=== PATIENT | female | born 1995 | race African-American/Black ===

== ENCOUNTER → 2024-01-13 | Outpatient (CLI) | payer MEDICAID, SELFPAY ==
[2024-01-16 11:13] LABS: Chlamydia By Nucleic Acid AMP Negative (Negative); Gonococcus By Nucleic Acid AMP Negative (Negative)
[2024-01-20 16:24] LABS: HPV Reflexed? NOT INDICATED
== END | disposition home or self-care (01) ==
PROVIDERS: Referring Provider Advanced Practice Midwife; Visit Provider Advanced Practice Midwife
DX: O09.90 Supervision of high risk pregnancy, unspecified, unspecified trimester (principal); Z3A.00 Weeks of gestation of pregnancy not specified
CPT/HCPCS: 87086; 87491; 87591; 88175; G0145

== ENCOUNTER 2024-02-06 14:29 | Emergency (ER) | payer MEDICAID, SELFPAY ==
[2024-02-06 14:30] VITALS: BP 125/61; PULSE 96; RESP 18; TEMP 36.1; O2SAT 100; BMI 26.6
--- NOTE | 2024-02-06 14:39 | US_ITS ---
HISTORY: contractions at 12 weeks. LMP 11/12/2023. TECHNIQUE: Transvaginal pelvic ultrasound was performed. 63 images. COMPARISON: None. FINDINGS: UTERUS: 13.8 x 11.6 x 8.9 cm. Closed cervix. OVARIES: Not well-visualized overlying bowel gas and enlarged uterus. FREE FLUID: None. INTRAUTERINE GESTATIONAL SAC: Single. Mean sac diameter 6.7 cm corresponding to 13 weeks 1 day. POLE: [place] rump length 6.7 cm corresponding to 13 weeks 0 days. ESTIMATED DELIVERY DATE: 08/12/2024. HEART MOTION: 164 bpm. SUBCHORIONIC HEMORRHAGE: None demonstrated. US/Transvaginal w/Preg US IMPRESSION: Single living intrauterine with an estimated gestational age of 13 weeks 0 days. Electronically Signed: Luci Murphy MD at 16:08 EDT ,
--- NOTE | 2024-02-06 14:40 | ED.VIS.FEGU ---
HPI HPI - Female History of Present Illness Chief Complaint: Informant: patient Pain Pain: Positive for Pelvic Pain Onset: Today and Yesterday Context: Gradual Onset Timing: Intermittent Quality: Positive for Cramping Current Severity: Mild Maximum Severity: Mild Bleeding Issue: Negative for Vaginal bleeding Associated Symptoms Associated Symptoms: Negative for Dysuria or Frequency Test: Positive Sexually: Positive for Active P: 3 Ab: 3 Narrative Narrative: Try 8-year-old female G7, P3 AB 3. States she is about 12 weeks . Currently under the care of of Dr. Khushi Mendez. Patient states she started having contractions yesterday and they be weak, more frequent today about every 10 minutes. Denies any vaginal bleeding. No dysuria. No fever. Prior similar symptoms: Yes Recent Illness/Hospitalization: No PFSH PFSH Home Medications ?Medication ?Instructions ?Recorded ?Last Taken ?Type B complex-liver extract capsule cap PO 01/12/24 Unknown History docosahexaenoic acid 200 mg mg PO 01/12/24 Unknown History capsule (Algal [place]-3 DHA) Allergy/AdvReac Type Severity Reaction Status Date / Time No Known Allergies Allergy Verified 02/06/24 14:30 Surgical History H/O tooth extraction Hx of section Social History adopted: Yes household members: spouse and children number of children: 3 current occupational status: unemployed current occupation: [employer] pets and animals: No history of recent travel: No sexually active: Yes Smoking Status: Never smoker second hand exposure: Yes (vape) alcohol intake: never substance use type: does not use diet: gluten free and other well-balanced diet: daily or most days caffeine: No eating out: rarely or never during the past year weight has: remained stable what type of physical activity do you participate in: walking and weight training frequency: 3-4 times per week duration: 15-30 minutes/day hayley/yarsani: Gnosticism seatbelt use: sometimes do you feel safe at home: Yes 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 No dysuria. Constitutional Constitutional ED: Denies chills or fever(s) Eyes Eyes: Denies blurry vision ENT ENT ED: Denies ear pain Cardiovascular Cardiovascular: Denies chest pain or palpitations Respiratory/Chest Respiratory/Chest: Denies cough or dyspnea Gastrointestinal Gastrointestinal: Denies abdominal pain, constipation, diarrhea, melena, nausea or vomiting Genitourinary Genitourinary ED: Denies dysuria or hematuria Musculoskeletal Musculoskeletal: Denies arthralgias Integumentary Denies abscess Neurologic Neurologic: Denies headache(s) Psychiatric Psychiatric: Denies anxiety Endocrine Endocrinology: Denies heat intolerance Hematologic/Lymphatic Hematologic/Lymphatic: Denies easy bleeding or easy bruising Allergic/Immunologic Allergic/Immunologic ED: Denies mouth swelling, tongue swelling or urticaria EXAM Physical Exam Narrative Exam Narrative: Well-appearing 28-year-old female. Currently is not having a contraction nor she having any significant pain. Vital signs are stable afebrile. Accompanied by her significant other. H EENT exam unremarkable. Lungs clear to auscultation. Heart regular rhythm rate about 90 no murmur. Chest wall ribs nontender. Abdomen soft nontender. Gravid nontender uterus. Moving all 4 extremities. Nontender no edema. She is awake and alert. No focal motor deficits. Const Vital Signs: 02/06/24 14:30 Temperature 97 F L Temperature Source Temporal Pulse Rate 96 Respiratory Rate 18 Blood Pressure 125/61 H Blood Pressure Mean 82 Pulse Ox 100 Oxygen Delivery Method Room Air Positive well nourished and well developed; Negative for obese, cachectic, contractures or unkempt General Appearance ED: well developed and NAD; Negative for unkempt, cachectic, contractures or pallor Nutritional Appearance: Negative for cachectic or obese HEENT Reports moist mucous membranes Eyes PERRL and EOMs intact bilaterally Neck no lymphadenopathy, supple and no JVD Chest Wall inspection of chest normal and palpation of chest normal Resp normal respiratory effort and clear to auscultation bilaterally Effort and Inspection: Negative for pain with movement Auscultation: Negative for rales, rhonchi, wheezes or diminished lung sounds Cardio regular rhythm, S1 normal heart sound, no murmurs and no JVD Rate: Negative for bradycardia, tachycardic or other Rhythm: Negative for abnormal rhythm GI normal to inspection, nondistended, normoactive bowel sounds, soft to palpation, non-tender, non-distended and no masses GI Narrative: Gravid nontender uterus. Palpation: Negative for tender, guarding or rigid Back/Spine no CVA tenderness Extremity normal to inspection and full ROM General Extremety ED: Negative for edema or tenderness General Extremity: Negative for edema Neuro oriented x3 and CN's II-XII intact bilaterally Sensorium / Orientation: alert, oriented to person, oriented to place and oriented to time Motor Exam: strength 5/5 throughout Psych mental status grossly normal Appearance: Negative for unkempt Attitude: No agitated Speech: No other Mood & Affect: Negative for depressed, anxious or tearful Skin no rashes or lesions noted and no wounds General Skin Exam: Negative for jaundice or pallor Rashes: No rashes noted Trauma: Negative for other MDM MDM MDM Narrative Medical decision making narrative: 28-year-old female complaining of uterine contractions at 12 weeks . Ultrasound and UA will be obtained. Exam benign. Currently she is pain-free. Repeat exam patient doing well at 4:20 PM. Abdomen is benign. She is currently not having any contractions. 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 Khushi Mendez. She wanted me to treat her with single dose of fosfomycin. She is comfortable patient be discharged to home. Make sure she stays hydrated and outpatient follow-up with their office. History & Record Review Discussion w/independent historian: Patient Additional record(s) reviewed:: Prior inpatient record, Prior outpatient record, Prior ED visit and Prior labs Lab Data Attestation: I reviewed the patient's lab results. Lab results narrative: Contaminated specimen 5-10 epithelial cells. 10-25 white cells and 2+ bacteria. No nitrites. Urinalysis shows Labs: Laboratory Results - last 24 hr 02/06/24 14:50 Urine Color Straw Urine Clarity Clear Urine pH 6.0 Ur Specific [place] 1.020 Urine Protein Negative Urine Glucose (UA) Normal Urine Ketones 50 H Urine Occult Blood Negative Urine Nitrite Negative Urine Bilirubin Negative Urine Urobilinogen Normal Ur Leukocyte Esterase 100 H Urine RBC 0 SEEN Urine WBC 10-25 SEEN Ur Squamous Epith Cells 5-10 SEEN Urine Bacteria 2+ Urine Mucus 0 SEEN Radiography Diagnostic Testing: Clinical Impression(s) from Imaging Studies Obstetrics Ultrasound 02/06/24 14:39 IMPRESSION: Single living intrauterine with an estimated gestational age of 13 weeks 0 days. Electronically Signed: Luci Murphy MD at 16:08 EDT , Discharge Plan Triage Chief Complaint: ED Provider: Simone Armstrong Dx/Rx/DC Orders Clinical Impression: , Uterine contractions Instructions: ED False Labor Prescriptions: No Action Algal [place]-3 DHA 200 mg capsule PO B complex-liver extract Capsule PO Primary Care Provider: Care Physician,No Primary Referrals: Khushi Mendez MD [Med Staff - Active Staff] - As soon as possible Care Physician,No Primary [Primary Care Provider] - Activity Restrictions/Additional Instructions: Urine is most likely contaminated but because there is bacteria in it we gave you a single dose of an antibiotic to treat any possible urinary tract infection. Make sure you are drinking plenty of fluids to stay hydrated. I spoke to your LICENSED AIRCRAFT MAINTENANCE ENGINEER Dr. Khushi Mendez. Follow-up with their office this week. Print Language: Greenlandic Disposition Disposition: Home, Self Care
[2024-02-06 14:56] LABS: Mucous, Urine 0 SEEN /hpf (<or=2+); Red Blood Cells-Urine 0 SEEN /hpf (0-5)
[2024-02-06 14:58] LABS: Color, Urine Straw (Yellow); Glucose, Dipstick Normal (Normal); Ketone-Dipstick 50 mg/dl (Negative); Leukocyte Esterase-Dipstick 100 /ul (Negative); Nitrite-Dipstick Negative (Negative); Occult Blood-Urine Negative /ul (Negative); Protein-Dipstick Negative (Negative); Urine Bilirubin Dipstick Negative (Negative); Urine Clarity Clear (Clear); Urine Urobilinogen Normal (Normal)
[2024-02-06 15:09] LABS: Bacteria 2+ /hpf (None Seen); Squamous Epithelial Cells - UA 5-10 SEEN /hpf (5-10); White Blood Cells 10-25 SEEN /hpf (0-5)
[2024-02-06 16:46] VITALS: BP 118/76; PULSE 79; RESP 16; TEMP 36.1; O2SAT 100
--- NOTE | 2024-02-06 17:13 | ED.RN ---
called pharmacy for med
[2024-02-06] MEDS: FOSFOMYCIN TROMETHAMINE 3 GM PACKET PO (17:31)
== END 2024-02-06 17:33 | disposition home or self-care (01) ==
PROVIDERS: Emergency Provider Emergency Medicine; Visit Provider Emergency Medicine
DX: O47.00 False labor before 37 completed weeks of gestation, unspecified trimester (principal); Z3A.12 12 weeks gestation of pregnancy
CPT/HCPCS: 76817; 81001; 99282

== ENCOUNTER → 2024-02-10 | Outpatient (CLI) | payer MEDICAID, SELFPAY ==
[2024-02-10 15:50] LABS: Absolute Lymphocyte Count 2.03 X10^3/uL (0.83-4.51); Absolute Neutrophil Count 6.9 X10^3/uL (2.0-7.7); Basophil# 0.03 X10^3/uL; Basophil% 0.3 % (0-1); Eosinophil# 0.03 X10^3/uL; Eosinophils% 0.3 % (0-5); Hematocrit 30.3 % (37-47); Hemoglobin 10.2 g/dL (12.0-15.0); Lymphocyte # 2.03 X10^3/ul (0.83-4.51); Mean Corp Hgb Conc 33.7 g/dL (32-36); Mean Corpuscular Hgb 24.7 pg (27.0-32.0); Mean Corpuscular Volume 73.4 fL (81-99); Mean Platelet Vol. 9.1 fl (6.2-12.0); Monocyte# 0.68 X10^3/uL; NRBC Flagged by Analyzer 0 % (0-5); Neutrophil # 6.85 X10^3/uL (2.7-7.7); Platelet Count 337 K/mm3 (150-450); RBC Distribution Width CV 13.7 % (11.6-14.6); RBC Distribution Width SD 36.7 fl (35.1-43.9); Red Blood Count 4.13 M/mm3 (4.2-5.4); White Blood Count 9.7 K/mm3 (4.4-11.0)
[2024-02-10 16:15] LABS: ALB/GLOB Ratio 0.8 RATIO (0.9-2.4); AST(SGOT) 14 U/L (15-37); Alanine Aminotransfer ALT/SGPT 14 U/L (13-56); Albumin, Serum 3.2 g/dL (3.2-5.0); Alkaline Phosphatase 36 U/L (45-117); Anion Gap 6 (5-15); BUN 10 mg/dL (7-18); BUN/Creat Ratio 13.5 RATIO (10-20); Chloride 102 mmol/L (98-107); Creatinine, Serum 0.74 mg/dL (0.55-1.02); EST Glomerular Filtration Rate 98 mL/min (>60); Est Glom Filt Rate - Afr Amer 118 mL/min (>60); Globulin 4.1 g/dL (2.2-4.2); Glucose 88 mg/dL (74-106); Potassium 3.9 mmol/L (3.5-5.1); Protein, Total 7.3 g/dL (6.4-8.2); Sodium Level 135 mmol/L (136-145)
[2024-02-10 16:52] LABS: HIV - WCH Non-Reactive (Nonreactive); Hepatitis B Surface Antigen Non-Reactive (Nonreactive); Hepatitis C Antibody Non-Reactive (Nonreactive); Rubella IgG Reactive (Nonreactive); Syphilis Antibodies Non-reactive
== END | disposition home or self-care (01) ==
LOC: LAB 15:05
PROVIDERS: Referring Provider Advanced Practice Midwife; Visit Provider Advanced Practice Midwife
DX: O09.90 Supervision of high risk pregnancy, unspecified, unspecified trimester (principal); Z3A.00 Weeks of gestation of pregnancy not specified; Z86.79 Personal history of other diseases of the circulatory system; Z87.59 Personal history of other complications of pregnancy, childbirth and the puerperium
CPT/HCPCS: 36415; 80053; 85025; 86703; 86762; 86780; 86803; 86850; 86900; 86901; 87340

== ENCOUNTER → 2024-02-22 | Outpatient (CLI) | payer MEDICAID, SELFPAY | END | disposition home or self-care (01) | LOC: LABSPEC 14:45 | PROVIDERS: Referring Provider Advanced Practice Midwife; Visit Provider Advanced Practice Midwife | DX: R30.0 Dysuria (principal) | CPT/HCPCS: 87086 ==

== ENCOUNTER 2024-03-16 13:41 | Outpatient (RCR) | payer MEDICAID, SELFPAY | END 2024-03-16 19:00 | disposition home or self-care (01) | LOC: PT 13:41 | PROVIDERS: Referring Provider Nurse Practitioner Women's Health; Visit Provider Nurse Practitioner Women's Health | DX: O99.891 Other specified diseases and conditions complicating pregnancy (principal); M53.3 Sacrococcygeal disorders, not elsewhere classified; M54.50 Low back pain, unspecified; Z3A.16 16 weeks gestation of pregnancy | CPT/HCPCS: 97110; 97161 ==

== ENCOUNTER → 2024-06-15 | Outpatient (CLI) | payer MEDICAID, SELFPAY ==
[2024-06-15 13:31] LABS: Absolute Neutrophil Count 7.4 X10^3/uL (2.0-7.7); Basophil# 0.04 X10^3/uL; Basophil% 0.4 % (0-1); Eosinophil# 0.11 X10^3/uL; Mean Corp Hgb Conc 33.3 g/dL (32-36); Mean Corpuscular Hgb 23.9 pg (27.0-32.0); Mean Corpuscular Volume 71.6 fL (81-99); Mean Platelet Vol. 9.3 fl (6.2-12.0); Monocyte# 0.96 X10^3/uL; Monocyte% 8.7 % (0-10); NRBC Flagged by Analyzer 0 % (0-5); Neutrophil # 7.41 X10^3/uL (2.7-7.7); Neutrophil % 66.9 % (47-70); Platelet Count 298 K/mm3 (150-450); RBC Distribution Width CV 15.6 % (11.6-14.6); RBC Distribution Width SD 39.9 fl (35.1-43.9); Red Blood Count 3.77 M/mm3 (4.2-5.4); White Blood Count 11.1 K/mm3 (4.4-11.0)
[2024-06-15 14:10] LABS: Glucose Challenge Gest 1H 50g 139 mg/dL (70-140)
[2024-06-15 14:40] LABS: HIV - WCH Non-Reactive (Nonreactive); Syphilis Antibodies Non-reactive
== END | disposition home or self-care (01) ==
LOC: LAB 13:14
PROVIDERS: Referring Provider Advanced Practice Midwife; Visit Provider Advanced Practice Midwife
DX: N96 Recurrent pregnancy loss (principal); O09.92 Supervision of high risk pregnancy, unspecified, second trimester; Z3A.20 20 weeks gestation of pregnancy
CPT/HCPCS: 36415; 82950; 85025; 86703; 86780; 86850; 86900; 86901

== ENCOUNTER → 2024-06-20 | Outpatient (CLI) | payer MEDICAID, SELFPAY | END | disposition home or self-care (01) | PROVIDERS: Referring Provider Advanced Practice Midwife; Visit Provider Advanced Practice Midwife | DX: O26.899 Other specified pregnancy related conditions, unspecified trimester (principal); R10.2 Pelvic and perineal pain; Z3A.00 Weeks of gestation of pregnancy not specified | CPT/HCPCS: 87070; 87205 ==

== ENCOUNTER 2024-06-27 10:30 | Inpatient (IN) | payer MEDICAID, SELFPAY ==
[2024-06-27 11:30] VITALS: BMI 33.0
[2024-06-27 12:00] LABS: Hematocrit 27.7 % (37-47); Hemoglobin 9.3 g/dL (12.0-15.0); Mean Corp Hgb Conc 33.6 g/dL (32-36); Mean Corpuscular Hgb 23.8 pg (27.0-32.0); Mean Platelet Vol. 9.3 fl (6.2-12.0); Platelet Count 286 K/mm3 (150-450); RBC Distribution Width CV 16.4 % (11.6-14.6); RBC Distribution Width SD 41.2 fl (35.1-43.9); White Blood Count 12.5 K/mm3 (4.4-11.0)
[2024-06-27 12:14] LABS: Fetal Fibronectin Negative
[2024-06-27 12:15] LABS: Record Kit Lot#, fFN D4035
--- NOTE | 2024-06-27 12:19 | US_ITS ---
EXAM: US , LIMITED CLINICAL INDICATION: hx IUGR TECHNIQUE: Real-time limited ultrasound of the maternal uterus with image documentation. COMPARISON: No relevant prior studies available. FINDINGS: GESTATIONAL AGE: Estimated gestational age by measurements is 32 weeks 6 days. Clinical gestational age is 32 weeks 3 days. NURIA: Clinical NURIA is August 19, 2024. BPD: Biparietal diameter is 8.0 cm. HC: Head circumference is 29.9 cm. AC: Abdominal circumference is 29.0 cm. FL: Femur length is 6.3 cm. POSITION: Single fetus in cephalic presentation. HEART RATE: cardiac rate is 153 bpm. PLACENTA: Anterior placenta with grade 1 maturity change. AMNIOTIC FLUID: Amniotic fluid index measures 11.0 cm. CERVIX: Cervix appears closed. IMPRESSION: Single live third trimester intrauterine gestation. Electronically Signed: Cristhian Page MD at 14:07 EST , EXAM: US BIOPHYSICAL PROFILE WITHOUT NON-STRESS TESTING CLINICAL INDICATION: hx IUGR TECHNIQUE: Real-time ultrasound of the maternal pelvis for biophysical profile evaluation with image documentation. COMPARISON: No relevant prior studies available. FINDINGS: BREATHING MOVEMENTS: Present. Score 2/2. GROSS BODY MOVEMENTS: Present. Score 2/2. TONE: Present. Score 2/2. QUALITATIVE AMNIOTIC FLUID VOLUME: Amniotic fluid index is 11 cm. FETUS: Single fetus is present dictation. HEART RATE: cardiac rate is 153 bpm. US/OB Limited With Biometrics IMPRESSION: No acute findings. Normal biophysical profile with score of 8/8. Electronically Signed: Cristhian Page MD at 14:07 EST ,
[2024-06-27 12:41] LABS: Fibrinogen 471 mg/dl (203-444)
[2024-06-27 13:23] VITALS: BP 112/66; PULSE 87
[2024-06-27] MEDS: 0.9% Saline Lock 10 ML Syringe IV ×2 (13:29→13:34)
[2024-06-27] MEDS: Betamethasone/Betamethasone 30 MG/5 ML Vial 12 MG IM (13:30)
[2024-06-27 16:01] VITALS: BP 127/72; PULSE 102; PULSE 105; RESP 16; TEMP 36.5; O2SAT 98
--- NOTE | 2024-06-27 17:36 | OB.TRI.HP_ITS ---
HPI - General HPI Narrative BUBBA AVITIA, is a 29 F who presents with decreased movement. upon evaluation in the office there was a 2 minute periodic variable to 100. Now FHT are reassuring and without deceleration but she is admitted for prolonged monitoring. some lower cramping no abdominla pain no vb lof. Maternal Data Information NURIA Calculator Estimated Delivery Date Method Current WG Current Estimate 08/19/24 Ultrasound #1 32w 3d PFSH PFSH Home Medications ?Medication ?Instructions ?Recorded ?Last Taken ?Type B complex-liver extract capsule 1 cap PO DAILY 01/12/24 06/26/24 21:00 History 1 cap docosahexaenoic acid 200 mg 1 mg PO DAILY 01/12/24 06/26/24 21:00 History capsule (Algal [place]-3 DHA) 1 mg multivit with min-leucovorin 1 cap PO DAILY 03/09/24 06/26/24 21:00 History calc,m-folate gluc 170 mcg DFE 1 cap capsule (ActivNutrients (without copper-iron)) ferrous sulfate 325 mg (65 mg 325 mg PO DAILY 06/27/24 06/26/24 21:00 History iron) tablet (FeroSul) 325 mg Allergy/AdvReac Type Severity Reaction Status Date / Time No Known Allergies Allergy Verified 06/27/24 16:01 Surgical History H/O tooth extraction Hx of section Social History adopted: Yes household members: spouse and children number of children: 3 current occupational status: unemployed current occupation: [employer] pets and animals: No history of recent travel: No sexually active: Yes Smoking Status: Never smoker second hand exposure: Yes (vape) alcohol intake: never substance use type: does not use diet: gluten free and other well-balanced diet: daily or most days caffeine: No eating out: rarely or never during the past year weight has: remained stable what type of physical activity do you participate in: walking and weight training frequency: 3-4 times per week duration: 15-30 minutes/day hayley/orthodoxy: Mu-Ism seatbelt use: sometimes do you feel safe at home: Yes 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 Date Name GA/Weeks Outcome Route Bth Weight Gen Labor Lgth Anesthesia Del Locatn Provider FOB 10/02/14 Luigi 36 live - full term [facility]ado [facility] live - full term 6#12oz [facility] 11/03/18 5 spontaneous 10/06/19 Quinzie(prounounced Liliya) 41 live - full term 6#14oz Female none [facility] 03/13/22 8 spontaneous 06/09/22 11 spontaneous Delivery Date: 10/02/14 Last Updated by: Eva Donald failed IOL, decels Delivery Date: 07/07/16 Last Updated by: Eva Donald attempted , c section Delivery Date: 03/13/22 Last Updated by: Eva Donald miscarried at 10 wks, gestational age was 8 wks Delivery Date: 06/09/22 Last Updated by: Eva Donald twins, heavy bleeding no transfusion, IVF Visit Details Expected Delivery Route/Plan TOLAC patient counseled regarding risks/benefits of trial of labor versus repeat . ACOG/uptodate education given to patient. [] % likelihood of success per calculator TOLAC consent form signed: [] Labor Preferences- CB/BF classes: [] labor support person: [] labor intervention preferences: [] pain management options preferred: [] cut cord/dad catch: [] : [] PP control planned: [] discussed possible routes of delivery and associated risks: [] special requests: [] Plans Covid status: [] Flu vaccine: declines Tdap vaccine: [] Rhogam: [] LARC form signed: [] Problem list reviewed and updated with the most current plan of care details and appropriate orders placed. Relevant counseling for the gestational age provided. Continue routine care and follow up unless otherwise noted in visit notes/problem list details OB Flowsheet Initial Weight: 153 lb Date -?-?-?-?-?-?-?-?-?-?-?-?- EGA Weight BP Urine Prot -?-?-?-?-?-?-?-?-?-?-?-?- Glucose FHR FuHt Pres Dilation -?-?-?-?-?-?-?-?-?-?-?-?- Effaced St Visit Note 01/13/24 -?-?-?-?-?-?-?-?-?-?-?-?- 8w 5d 153 lb (+0 oz) 115/67 -?-?-?-?-?-?-?-?-?-?-?-?- 170 -?-?-?-?-?-?-?-?-?-?-?-?- KW- NOB at [facility] pe. US at [facility]. Considering NIPT. Encouraged previous records for TOLAC. Hx 1 successful 02/10/24 -?-?-?-?-?-?-?-?-?--?-?-?- 12w 5d 156 lb (+3 lb) 111/37 Negative -?-?-?-?-?-?-?-?-?-?-?-?- Negative 150 -?-?-?-?-?-?-?-?-?-?-?-?- SM- no vb had ct x over the weekend seen in ER took antibiotic 02/22/24 -?-?-?-?-?-?-?-?-?-?-?-?- 14w 3d 155 lb (+2 lb) 103/65 Negative -?-?-?-?-?-?-?-?-?-?-?-?- Negative 160 -?-?-?-?-?-?-?-?-?-?-?-?- KW- work in for UTI sx. 10 dip neg but culture sent and rx sent for symptoms 03/09/24 -?-?-?-?-?-?-?-?-?-?-?-?- 16w 5d 163 lb 4 oz (+10 lb 4 oz) 104/64 Negative -?-?-?-?-?-?-?-?-?-?-?-?- Negative 156 -?-?-?-?-?--?-?-?-?-?-?-?- MH-No VB, LOF. F eeling flutters. States severe low back, sacral pain. Had with other pregnancies and did PT. Requesting referral. MFM US ordered 04/05/24 -?-?-?-?-?-?-?-?-?-?-?-?- 20w 4d 172 lb 2 oz (+19 lb 2 oz) 123/69 Negative -?-?-?-?-?-?-?-?-?-?-?-?- Negative 159 -?-?-?-?-?-?-?-?-?-?-?--?- JV- normal anato my scan. had better luck with massage therapist than the PT. her daughter has hives currently but no fever and no one else is sick around her. 05/11/24 -?-?-?-?-?-?-?-?-?-?-?-?- 25w 5d 183 lb (+30 lb) 114/73 Negative -?-?-?-?-?-?-?-?-?-?-?-?- Negative 160 25 -?-?-?-?-?-?-?-?-?--?-?-?- KW- no vb/lof/so me contractions at times. good fm. has had URI x 2 weeks with minimal relief- request to be seen by urgent care. 06/15/24 -?-?-?-?-?-?-?-?-?-?-?-?- 30w 5d 190 lb (+37 lb) 109/71 Negative -?-?-?-?-?-?-?-?-?-?-?-?- Negative 150 28 -?-?-?-?-?-?-?-?-?-?-?-?- JV- glucola pend ing. cbc shows hg is 9. she is taking iron when remembers. rpt in 4 weeks. 06/20/24 -?-?-?-?-?-?-?-?-?-?-?-?- 31w 3d 188 lb 8 oz (+35 lb 8 oz) 129/74 Negative -?-?-?-?-?-?-?-?-?-?-?-?- Negative 150 32 0 -?-?-?-?-?-?-?-?-?-?-?-?- KW- [employer] [facility] [employer] for [employer]. recommended she go to but she declined. good fm. no vb/lof. closed on spec exam. genital urine culture today. 06/27/24 -?-?-?-?-?-?-?-?-?-?-?-?- 32w 3d 189 lb 6 oz (+36 lb 6 oz) Negative -?-?-?-?-?-?-?-?-?-?-?-?- Negative -?-?-?-?-?-?-?-?-?-?-?-?- SM- patient mago ng some cramping and decreased movement- sent to l and d for further monitoring due to variable decel on monitor in office ROS Constitutional Constitutional: Reports systems reviewed and no addt'l complaints, except as documented and as per HPI ENT HEENT: Reports systems reviewed and no addt'l complaints, except as documented Cardiovascular Cardiovascular: Reports systems reviewed and no addt'l complaints, except as documented Respiratory/Chest Respiratory/Chest: Reports systems reviewed and no addt'l complaints, except as documented Gastrointestinal Gastrointestinal: Reports as per HPI Genitourinary Genitourinary: Reports as per HPI Musculoskeletal Musculoskeletal: Reports systems reviewed and no addt'l complaints, except as documented Integumentary Integumentary: Reports systems reviewed and no addt'l complaints, except as documented Neurologic Neurologic: Reports systems reviewed and no addt'l complaints, except as documented Physical Exam Const alert, oriented x3 and no apparent distress HEENT Head and Scalp: normocephalic and atraumatic Neck full ROM and no lymphadenopathy Chest inspection of chest normal Resp normal respiratory effort GI GI Narrative: gravid, abdomen nontender, AGA Manual OB Exam: dilated, effaced and station NST FHR Rate Baby A Baseline: 140-150 Variability:: Moderate Accelerations:: 15 x 15 Decelerations:: None NST Reactive:: Yes FHR Category:: Category I Uterine Activity:: irregualr q 10 Assessment & Plan (1) Decreased movements in third trimester: (2) Variable heart rate decelerations, antepartum: (3) : QUALIFIERS: Weeks of gestation: 32 weeks Qualified Code(s): Z3A.32 - 32 weeks gestation of COMMENT: declined genetic & carrier testing. nl anatomy (4) Supervision of high-risk : QUALIFIERS: Trimester: second trimester Qualified Code(s): O09.92 - Supervision of high risk , unspecified, second trimester COMMENT: PRR, , NURIA 08/19/24, PC Alvarado Meyers Quinzie, Mickey (5) History of prior with IUGR : COMMENT: growth US at 36 weeks (6) UTI (urinary tract infection) during : QUALIFIERS: Trimester: second trimester Qualified Code(s): O23.42 - Unspecified infection of urinary tract in , second trimester COMMENT: symptomatic-cx and rx sent; neg culture (7) Anemia affecting : QUALIFIERS: Trimester: second trimester Qualified Code(s): O99.012 - Anemia complicating , second trimester COMMENT: at NOB; taking fe. hg 9 at 28 weeks. rpt 4 weeks. if still low despite iron, order iron studies and consider IV iron. PLAN: Plan 32 weeks - admitted for STO, bpp 8/8 will continuous monitor, give BMZ x 2. cervix external os 1 cm nurse unable to reach internal. cbc stable anemia nl fibrinogen. Charges/Coding Multi Select Codes Visit Charges Office Visit/Consults: 22671 OV L3 Est 20min
[2024-06-27 19:19] VITALS: BP 129/73; PULSE 110; O2SAT 82
[2024-06-27 19:20] VITALS: PULSE 104; RESP 16; TEMP 36.8; O2SAT 98
[2024-06-27 23:54] VITALS: BP 125/78; PULSE 104; PULSE 105; O2SAT 93; O2SAT 96
[2024-06-28] VITALS (8 sets, daily range): BP systolic 112–129; BP diastolic 55–80; PULSE 98–116; RESP 15–18; TEMP 36.8–37.3; O2SAT 94–98
--- NOTE | 2024-06-28 06:00 | US_ITS ---
STUDY: OBSTETRICAL ULTRASOUND - BIOPHYSICAL PROFILE REASON FOR EXAM: Female, 29 years old Indeterminate FHR tracing LMP: November 13, 2023. PRIOR ULTRASOUND: Comparison is made with prior study dated June 27, 2024 TECHNIQUE: Transabdominal TECHNICAL QUALITY: Adequate. FINDINGS: There is a single intrauterine fetus. The fetus is in a cephalic presentation. There is demonstrated cardiac activity with a heart rate of 147 bpm. There is a normal amniotic fluid volume. The largest amniotic fluid pocket measures 4.3 cm. The amniotic fluid index (YU) is 14.1 cm. The placenta is anterior in location and is not low lying. There are Grade 1 placental changes. Age by LMP: 32 weeks, 4 days. NURIA by LMP: August 19, 2024. BIOPHYSICAL PROFILE: Breathing Movements (FBM): 2 Gross Body Movements (GBM): 2 Tone (FT): 2 Amniotic Fluid Volume (AFV): 2 TOTAL SCORE: US/Biophysical Prof W/O Non Stres IMPRESSION: Normal biophysical profile of 01/06. Electronically Signed: Eugene Sanchez MD at 8:59 EST ,
--- NOTE | 2024-06-28 09:33 | OB.TRI.HP_ITS ---
HPI - General HPI Narrative BUBBA AVITIA, is a 29 F no vb lof overnight, some dizziness, irregular ctx wrapping around her back. no cervical change still 1 cm. good FM. Maternal Data Information NURIA Calculator Estimated Delivery Date Method Current WG Current Estimate 08/19/24 Ultrasound #1 32w 4d PFSH PFSH Home Medications ?Medication ?Instructions ?Recorded ?Last Taken ?Type B complex-liver extract capsule 1 cap PO DAILY 01/12/24 06/26/24 21:00 History 1 cap docosahexaenoic acid 200 mg 1 mg PO DAILY 01/12/24 06/26/24 21:00 History capsule (Algal [place]-3 DHA) 1 mg multivit with min-leucovorin 1 cap PO DAILY 03/09/24 06/26/24 21:00 History calc,m-folate gluc 170 mcg DFE 1 cap capsule (ActivNutrients (without copper-iron)) ferrous sulfate 325 mg (65 mg 325 mg PO DAILY 06/27/24 06/26/24 21:00 History iron) tablet (FeroSul) 325 mg Allergy/AdvReac Type Severity Reaction Status Date / Time No Known Allergies Allergy Verified 06/27/24 16:01 Surgical History H/O tooth extraction Hx of section Social History adopted: Yes household members: spouse and children number of children: 3 current occupational status: unemployed current occupation: [employer] pets and animals: No history of recent travel: No sexually active: Yes Smoking Status: Never smoker second hand exposure: Yes (vape) alcohol intake: never substance use type: does not use diet: gluten free and other well-balanced diet: daily or most days caffeine: No eating out: rarely or never during the past year weight has: remained stable what type of physical activity do you participate in: walking and weight training frequency: 3-4 times per week duration: 15-30 minutes/day hayley/adventism: [employer] seatbelt use: sometimes do you feel safe at home: Yes additional social history: -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 Date Name GA/Weeks Outcome Route Bth Weight Gen Labor Lgth Anesthesia Del Locatn Provider FOB 10/02/14 Luigi 36 live - full term 6#2oz Male epidural [facility] 07/07/16 Alvarado 40 live - full term 6#12oz Male spinal [facility] 11/03/18 5 spontaneous 10/06/19 Quinzie(prounounced Liliya) 41 live - full term 6#14oz F emale none [facility] 03/13/22 8 spontaneous 06/09/22 11 spontaneous Delivery Date: 10/02/14 Last Updated by: Eva Donald failed IOL, decels Delivery Date: 07/07/16 Last Updated by: Eva Donald attempted , c section Delivery Date: 03/13/22 Last Updated by: Eva Donald miscarried at 10 wks, gestational age was 8 wks Delivery Date: 06/09/22 Last Updated by: Eva Donald twins, heavy bleeding no transfusion, IVF Visit Details Expected Delivery Route/Plan TOLAC patient counseled regarding risks/benefits of trial of labor versus repeat . ACOG/uptodate education given to patient. [] % likelihood of success per calculator TOLAC consent form signed: [] Labor Preferences- CB/BF classes: [] labor support person: [] labor intervention preferences: [] pain management options preferred: [] cut cord/dad catch: [] : [] PP control planned: [] discussed possible routes of delivery and associated risks: [] special requests: [] Plans Covid status: [] Flu vaccine: declines Tdap vaccine: [] Rhogam: [] LARC form signed: [] Problem list reviewed and updated with the most current plan of care details and appropriate orders placed. Relevant counseling for the gestational age provided. Continue routine care and follow up unless otherwise noted in visit notes/problem list details OB Flowsheet Initial Weight: 153 lb Date -?-?-?-?-?-?-?-?-?-?-?-?- EGA Weight BP Urine Prot -?-?-?-?-?-?-?-?-?-?-?-?- Glucose FHR FuHt Pres Dilation -?-?-?-?-?-?-?-?-?-?-?-?- Effaced St Visit Note 01/13/24 -?-?-?-?-?-?-?-?-?-?-?-?- 8w 5d 153 lb (+0 oz) 115/67 -?-?-?-?-?-?-?-?-?-?-?-?- 170 -?-?-?-?-?-?-?-?-?-?-?-?- KW- NOB at [facility] pe. US at [facility]. Considering NIPT. Encouraged previous records for TOLAC. Hx 1 successful 02/10/24 -?-?-?-?-?-?-?-?-?-?-?-?- 12w 5d 156 lb (+3 lb) 111/37 Negative -?-?-?-?-?-?-?-?-?-?-?-?- Negative 150 -?-?-?-?-?-?-?-?-?-?-?-?- SM- no vb had ct x over the weekend seen in ER took antibiotic 02/22/24 -?-?-?-?-?-?-?-?-?-?-?-?- 14w 3d 155 lb (+2 lb) 103/65 Negative -?-?-?-?-?-?-?-?-?-?-?-?- Negative 160 -?-?-?-?-?-?-?-?-?-?-?-?- KW- work in for UTI sx. 10 dip neg but culture sent and rx sent for symptoms 03/09/24 -?-?-?-?-?-?-?-?-?-?-?-?- 16w 5d 163 lb 4 oz (+10 lb 4 oz) 104/64 Negative -?-?-?-?-?-?-?-?-?-?-?-?- Negative 156 -?-?-?-?-?-?-?-?-?-?-?-?- MH-No VB, LOF. F eeling flutters. States severe low back, sacral pain. Had with other pregnancies and did PT. Requesting referral. MFM US ordered 04/05/24 -?-?-?-?-?-?-?-?-?-?-?-?- 20w 4d 172 lb 2 oz (+19 lb 2 oz) 123/69 Negative -?-?-?-?-?-?-?-?-?-?-?-?- Negative 159 -?-?-?-?-?-?-?-?-?-?-?-?- JV- normal anato my scan. had better luck with massage therapist than the PT. her daughter has hives currently but no fever and no one else is sick around her. 05/11/24 -?-?-?-?-?-?-?-?-?-?-?-?- 25w 5d 183 lb (+30 lb) 114/73 Negative -?-?-?-?-?-?-?-?-?-?-?-?- Negative 160 25 -?-?-?-?-?-?-?-?-?-?-?-?- KW- no vb/lof/so me contractions at times. good fm. has had URI x 2 weeks with minimal relief- request to be seen by urgent care. 06/15/24 -?-?-?-?-?-?-?-?-?-?-?-?- 30w 5d 190 lb (+37 lb) 109/71 Negative -?-?-?-?-?-?-?-?-?-?-?-?- Negative 150 28 -?-?-?-?-?-?-?-?-?-?-?-?- JV- glucola pend ing. cbc shows hg is 9. she is taking iron when remembers. rpt in 4 weeks. 06/20/24 -?-?-?-?-?-?-?-?-?-?-?-?- 31w 3d 188 lb 8 oz (+35 lb 8 oz) 129/74 Negative -?-?-?-?-?-?-?-?-?-?-?-?- Negative 150 32 0 -?-?-?-?-?-?-?-?-?-?-?-?- KW- work in [employer] for cramping. recommended she go to but she declined. good fm. no vb/lof. closed on spec exam. genital urine culture today. 06/27/24 -?-?-?-?-?-?-?-?-?-?-?-?- 32w 3d 189 lb 6 oz (+36 lb 6 oz) Negative -?-?-?-?-?-?-?-?-?-?-?-?- Negative -?-?-?-?-?-?-?-?-?-?-?-?- SM- patient mago ng some cramping and decreased movement- sent to l and d for further monitoring due to variable decel on monitor in office ROS Constitutional Constitutional: Reports systems reviewed and no addt'l complaints, except as documented and as per HPI ENT HEENT: Reports systems reviewed and no addt'l complaints, except as documented Cardiovascular Cardiovascular: Reports systems reviewed and no addt'l complaints, except as documented Respiratory/Chest Respiratory/Chest: Reports systems reviewed and no addt'l complaints, except as documented Gastrointestinal Gastrointestinal: Reports as per HPI Genitourinary Genitourinary: Reports as per HPI Musculoskeletal Musculoskeletal: Reports systems reviewed and no addt'l complaints, except as documented Integumentary Integumentary: Reports systems reviewed and no addt'l complaints, except as documented Neurologic Neurologic: Reports systems reviewed and no addt'l complaints, except as documented Physical Exam Const alert, oriented x3 and no apparent distress HEENT Head and Scalp: normocephalic and atraumatic Neck full ROM and no lymphadenopathy Chest inspection of chest normal Resp normal respiratory effort GI GI Narrative: gravid, abdomen nontender, AGA Manual OB Exam: dilated, effaced and station NST FHR Rate Baby A Baseline: 140-150 Variability:: Moderate Accelerations:: 15 x 15 Decelerations:: Variable (intermittent throughout the night, no persistent, overall cat I tracing) NST Reactive:: Yes FHR Category:: Category I Uterine Activity:: irregualr q 10 Assessment & Plan (1) Decreased movements in third trimester: (2) Variable heart rate decelerations, antepartum: (3) : QUALIFIERS: Weeks of gestation: 32 weeks Qualified Code(s): Z3A.32 - 32 weeks gestation of COMMENT: declined genetic & carrier testing. nl anatomy (4) Supervision of high-risk : QUALIFIERS: Trimester: second trimester Qualified Code(s): O09.92 - Supervision of high risk , unspecified, second trimester COMMENT: PRR, , NURIA 08/19/24, PC Alvarado Meyers Quinzie, Mickey (5) History of prior with IUGR : COMMENT: growth US at 36 weeks (6) UTI (urinary tract infection) during : QUALIFIERS: Trimester: second trimester Qualified Code(s): O23.42 - Unspecified infection of urinary tract in , second trimester COMMENT: symptomatic-cx and rx sent; neg culture (7) Anemia affecting : QUALIFIERS: Trimester: second trimester Qualified Code(s): O99.012 - Anemia complicating , second trimester COMMENT: at NOB; taking fe. hg 9 at 28 weeks. rpt 4 weeks. if still low despite iron, order iron studies and consider IV iron. PLAN: Plan 32 weeks - admitted for STO, bpp 01/06 will continuous monitor, give BMZ x 2. repeat bpp in am still 01/06. will keep until no decels x 24 hours. if becomes high risk for delivery will transport to [facility] Charges/Coding Multi Select Codes Visit Charges Visit Charges: 81126 Subs Hosp L3
[2024-06-28] MEDS: Betamethasone/Betamethasone 30 MG/5 ML Vial 12 MG IM (13:59)
[2024-06-28] MEDS: 0.9% Saline Lock 10 ML Syringe IV (14:12)
[2024-06-29] VITALS (163 sets, daily range): BP systolic 113–134; BP diastolic 58–78; PULSE 59–118; RESP 13–18; TEMP 36.4–37; O2SAT 83–100
[2024-06-29] MEDS: Lactated Ringers 1,000 ML 999 ML IV ×3 (06:30→09:12)
--- NOTE | 2024-06-29 08:03 | PN_ITS ---
Progress Note patient is laying on her side feeling contractions. Since around 4 30 am the contractions have produced late decelerations after almost every contraction. She denies loss of fluid, vaginal bleeding, or dec fm. current tracing: FHT: 145 Moderate variability, late decelerations present after at least 50% of the contractions. [place]: Contraction frequency at this point is irregular cx is 1/50/-4 A/P: 32 weeks 5 days, not stable for transport. status post 2 doses of celestone plan for repeat section when the transport team can get here or sooner as needed coags and cbc stat
[2024-06-29 08:37] LABS: Hematocrit 24.8 % (37-47); Hemoglobin 8.5 g/dL (12.0-15.0); Mean Corp Hgb Conc 34.3 g/dL (32-36); Mean Corpuscular Hgb 23.9 pg (27.0-32.0); Mean Corpuscular Volume 69.9 fL (81-99); Mean Platelet Vol. 8.8 fl (6.2-12.0); POSITIVE COUNT YES; POSITIVE DIFFERENTIAL YES; POSITIVE MORPHOLOGY YES; Platelet Count 265 K/mm3 (150-450); RBC Distribution Width CV 16.2 % (11.6-14.6); RBC Distribution Width SD 40.5 fl (35.1-43.9); Red Blood Count 3.55 M/mm3 (4.2-5.4); White Blood Count 20.2 K/mm3 (4.4-11.0)
[2024-06-29 08:51] LABS: Prothrombin Time (Protime)PT. 13.5 SECONDS (11.7-14.9)
[2024-06-29 08:52] LABS: Partial Thromboplast Time 21.8 Seconds (24.1-36.2)
[2024-06-29 08:54] LABS: Fibrinogen 392 mg/dl (203-444)
--- NOTE | 2024-06-29 09:02 | HP.PCM.OB_ITS ---
HPI - General General Date of Admission: 06/29/24 HPI Narrative BUBBA AVITIA, is a 29 y/o @ 32 weeks 5 days who presents to L&D on 06/27/24 for a prolonged deceleration in the office .She was admitted for observation and given steroids. However on the morning of 06/29/24 more pe rsistent late decelerations were noted and the decision was made to proceed with a section. Due to prematurity we asked for [place] transport to be present during the section. Maternal Data Information NURIA Calculator Estimated Delivery Date Method Current WG Current Estimate 08/19/24 Ultrasound #1 32w 5d PFSH [facility] Medical History (Updated 06/29/24 @ 09:[address] 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 Pre-eclampsia Home Medications ?Medication ?Instructions ?Recorded ?Last Taken ?Type B complex-liver extract capsule 1 cap PO DAILY 01/12/24 06/26/24 21:00 History 1 cap docosahexaenoic acid 200 mg 1 mg PO DAILY 01/12/24 06/26/24 21:00 History capsule ([place]gal [place]-3 DHA) 1 mg multivit with min-leucovorin 1 cap PO DAILY 03/09/24 06/26/24 21:00 History calc,m-folate gluc 170 mcg DFE 1 cap capsule (ActivNutrients (without copper-iron)) ferrous sulfate 325 mg (65 mg 325 mg PO DAILY 06/27/24 06/26/24 21:00 History iron) tablet (FeroSul) 325 mg Allergy/AdvReac Type Severity Reaction Status Date / Time No Known Allergies Allergy Verified 06/27/24 16:01 Surgical History H/O tooth extraction Hx of section Social History adopted: Yes household members: spouse and children number of children: 3 current occupational status: unemployed current occupation: [employer] pets and animals: No history of recent travel: No sexually active: Yes Smoking Status: Never smoker second hand exposure: Yes (vape) alcohol intake: never substance use type: does not use diet: gluten free and other well-balanced diet: daily or most days caffeine: No eating out: rarely or never during the past year weight has: remained stable what type of physical activity do you participate in: walking and weight training frequency: 3-4 times per week duration: 15-30 minutes/day 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 Date Name GA/Weeks Outcome Route Bth Weight Infant Gen Labor Lgth Anesthesia Del Locatn Provider FOB 10/02/14 Luigi 36 live - full term 6#2oz [facility] Alvarado 40 live - full term 6#12oz Male spinal [facility] 11/03/18 5 spontaneous 10/06/19 Quinzie(prounounced Liliya) 41 live - full term 6#14oz Female none [facility] 03/13/22 8 spontaneous 06/09/22 11 spontaneous Delivery Date: 10/02/14 Last Updated by: Eva Donald failed IOL, decels Delivery Date: 07/07/16 Last Updated by: Eva Donald attempted , c section Delivery Date: 03/13/22 Last Updated by: Eva Donald miscarried at 10 wks, gestational age was 8 wks Delivery Date: 06/09/22 Last Updated by: Eva Donald twins, heavy bleeding no transfusion, IVF Visit Details Expected Delivery Route/Plan TOLAC patient counseled regarding risks/benefits of trial of labor versus repeat . ACOG/uptodate education given to patient. [] % likelihood of success per calculator TOLAC consent form signed: [] Labor Preferences- CB/BF classes: [] labor support person: [] labor intervention preferences: [] pain management options preferred: [] cut cord/dad catch: [] : [] PP control planned: [] discussed possible routes of delivery and associated risks: [] special requests: [] Plans Covid status: [] Flu vaccine: declines Tdap vaccine: [] Rhogam: [] LARC form signed: [] Problem list reviewed and updated with the most current plan of care details and appropriate orders placed. Relevant counseling for the gestational age provided. Continue routine care and follow up unless otherwise noted in visit notes/problem list details OB Flowsheet Initial Weight: 153 lb Date -?-?-?-?-?-?-?-?-?-?-?-?- EGA Weight BP Urine Prot -?-?-?-?-?-?-?-?-?-?-?-?- Glucose FHR FuHt Pres Dilation -?-?-?-?-?-?-?-?-?-?-?-?- Effaced St Visit Note 01/13/24 -?-?-?-?-?-?-?-?-?-?-?-?- 8w 5d 153 lb (+0 oz) 115/67 -?-?-?-?-?-?-?-?-?-?-?-?- 170 -?--?-?-?-?-?-?-?-?-?-?-?- KW- NOB at [facility] pe. US at [facility]. Considering NIPT. Encouraged previous records for TOLAC. Hx 1 successful 02/10/24 -?-?-?-?-?-?-?-?-?-?-?-?- 12w 5d 156 lb (+3 lb) 111/37 Negative -?-?-?-?-?-?-?-?-?-?-?-?- Negative 150 -?-?-?-?-?-?-?-?-?-?-?-?- SM- no vb had ct x over the weekend seen in ER took antibiotic 02/22/24 -?-?-?-?-?-?-?-?-?-?-?-?- 14w 3d 155 lb (+2 lb) 103/65 Negative -?-?-?-?-?-?-?-?-?-?-?-?- Negative 160 -?-?-?-?-?-?-?-?-?-?-?-?- KW- work in for UTI sx. 10 dip neg but culture sent and rx sent for symptoms 03/09/24 -?-?-?-?-?-?-?-?-?-?-?-?- 16w 5d 163 lb 4 oz (+10 lb 4 oz) 104/64 Negative -?-?-?-?-?-?-?-?-?-?-?-?- Negative 156 -?-?-?-?-?-?-?-?-?-?-?-?- MH-No VB, LOF. F eeling flutters. States severe low back, sacral pain. Had with other pregnancies and did PT. Requesting referral. [facility] US ordered 04/05/24 -?-?-?-?-?-?-?-?-?-?-?-?- 20w 4d 172 lb 2 oz (+19 lb 2 oz) 123/69 Negative -?-?-?-?-?-?-?-?-?-?-?-?- Negative 159 -?-?-?-?-?-?-?-?-?-?-?-?- JV- normal anato my scan. had better luck with massage therapist than the PT. her daughter has hives currently but no fever and no one else is sick around her. 05/11/24 -?-?-?-?-?-?-?-?-?-?-?-?- 25w 5d 183 lb (+30 lb) 114/73 Negative -?-?-?-?-?-?-?-?-?-?-?-?- Negative 160 25 -?-?-?-?-?-?-?-?-?-?-?-?- KW- no vb/lof/so me contractions at times. good fm. has had URI x 2 weeks with minimal relief- request to be seen by urgent care. 06/15/24 -?-?-?-?-?-?-?-?-?-?-?-?- 30w 5d 190 lb (+37 lb) 109/71 Negative -?-?-?-?-?-?-?-?-?-?-?-?- Negative 150 28 -?-?-?-?-?-?-?-?-?-?-?-?- JV- glucola pend ing. cbc shows hg is 9. she is taking iron when remembers. rpt in 4 weeks. 06/20/24 -?-?-?-?-?-?-?-?-?-?-?-?- 31w 3d 188 lb 8 oz (+35 lb 8 oz) 129/74 Negative -?-?-?-?-?-?-?-?-?-?-?-?- Negative 150 32 0 -?-?-?-?-?-?-?-?-?-?-?-?- KW- work in [employer] for cramping. recommended she go to but she declined. go od fm. no vb/lof. closed on spec exam. genital urine culture today. 06/27/24 -?-?-?-?-?-?-?-?-?-?-?-?- 32w 3d 189 lb 6 oz (+36 lb 6 oz) Negative -?-?-?-?-?-?-?-?-?-?-?-?- Negative -?-?-?-?-?-?-?-?-?-?-?-?- SM- patient mago ng some cramping and decreased movement- sent to l and d for further monitoring due to variable decel on monitor in office ROS Constitutional Constitutional: Denies change in weight, fatigue, fever(s), headache(s), poor appetite or weakness Eyes Eyes: Denies blurry vision, change in vision, seeing flashes or spots in vision ENT HEENT: Denies dizziness, headache(s), loss taste/smell or sore throat Cardiovascular Cardiovascular: Denies chest pain, dizziness, dyspnea, irregular heart rhythm, leg edema, palpitations, rapid heart rate or vomiting Respiratory/Chest Respiratory/Chest: Denies chest tightness, cough, dyspnea or breast pain Gastrointestinal Gastrointestinal: Denies abdominal pain, anorexia, constipation, cramping, diarrhea, hemorrhoids, vomiting or weight changes Genitourinary Genitourinary: Denies dysuria, flank pain, genital lesions, genital pain, urinary frequency or urinary urgency Musculoskeletal Musculoskeletal: Denies back pain, difficulty walking, joint pain, limited range of motion, muscle cramps or numbness Integumentary Integumentary: Denies lesions or unusual bruising Neurologic Neurologic: Denies abnormal movements, abnormal speech, dizziness, numbness, seizure-like activity or syncope Psychiatric Psychiatric: Denies anxiety, behavioral changes, change in appetite, change in libido, cognitive impairment, confusion, depression, difficulty concentrating, hallucinations or suicidal thoughts Endocrine Endocrinology: Denies excessive sweating, polydipsia or polyuria Hematologic/Lymphatic Hematologic/Lymphatic: Denies easy bleeding, easy bruising or lymphadenopathy Allergic/Immunologic Allergic/Immunologic: Denies itchy eyes, lip swelling, seasonal rhinorrhea, rhinitis, throat swelling, tongue swelling, eczemia, wheezing or asthma Vital Signs Vital Signs Vital Signs: 06/28/24 09:17 06/28/24 09:17 06/28/24 09:17 Temperature Temperature Source Tympanic Pulse Rate 114 H Respiratory Rate Blood Pressure 129/69 H Blood Pressure Mean BP Systolic 129 BP Diastolic 69 Blood Pressure Source Blood Pressure Position Blood Pressure Location Pulse Ox Oxygen Delivery Method 06/28/24 09:17 06/28/24 09:17 06/28/24 13:56 Temperature 99.1 F Temperature Source Pulse Rate Respiratory Rate 15 Blood Pressure 120/55 L Blood Pressure Mean BP Systolic 120 BP Diastolic 55 Blood Pressure Source Blood Pressure Position Blood Pressure Location Pulse Ox Oxygen Delivery Method 06/28/24 13:56 06/28/24 20:32 06/28/24 20:32 Temperature Temperature Source Pulse Rate 116 H 115 H Respiratory Rate Blood Pressure 121/80 H Blood Pressure Mean BP Systolic 121 BP Diastolic 80 Blood Pressure Source Blood Pressure Position Blood Pressure Location Pulse Ox Oxygen Delivery Method 06/28/24 20:35 06/28/24 20:35 06/28/24 20:35 Temperature Temperature Source Temporal Pulse Rate Respiratory Rate 18 Blood Pressure 121/80 H Blood Pressure Mean BP Systolic 121 BP Diastolic 80 Blood Pressure Source Blood Pressure Position Blood Pressure Location Pulse Ox Oxygen Delivery Method 06/28/24 20:35 06/28/24 20:35 06/28/24 22:47 Temperature 98.2 F Temperature Source Pulse Rate 102 H Respiratory Rate Blood Pressure Blood Pressure Mean BP Systolic BP Diastolic Blood Pressure Source Blood Pressure Position Blood Pressure Location Pulse Ox 98 Oxygen Delivery Method 06/28/24 22:47 06/29/24 00:51 06/29/24 00:51 Temperature Temperature Source Pulse Rate 90 Respiratory Rate Blood Pressure Blood Pressure Mean BP Systolic BP Diastolic Blood Pressure Source Blood Pressure Position Blood Pressure Location Pulse Ox 94 93 Oxygen Delivery Method 06/29/24 00:54 06/29/24 00:54 06/29/24 00:54 Temperature Temperature Source Temporal Pulse Rate 97 Respiratory Rate Blood Pressure 122/72 H Blood Pressure Mean BP Systolic 122 BP Diastolic 72 Blood Pressure Source Blood Pressure Position Blood Pressure Location Pulse Ox Oxygen Delivery Method 06/29/24 00:54 06/29/24 00:54 06/29/24 01:41 Temperature 98.3 F Temperature Source Pulse Rate 102 H Respiratory Rate 18 Blood Pressure Blood Pressure Mean BP Systolic BP Diastolic Blood Pressure Source Blood Pressure Position Blood Pressure Location Pulse Ox Oxygen Delivery Method 06/29/24 01:41 06/29/24 01:46 06/29/24 01:46 Temperature Temperature Source Pulse Rate 102 H Respiratory Rate Blood Pressure Blood Pressure Mean BP Systolic BP Diastolic Blood Pressure Source Blood Pressure Position Blood Pressure Location Pulse Ox 99 99 Oxygen Delivery Method 06/29/24 01:51 06/29/24 01:51 06/29/24 01:56 Temperature Temperature Source Pulse Rate 100 105 H Respiratory Rate Blood Pressure Blood Pressure Mean BP Systolic BP Diastolic Blood Pressure Source Blood Pressure Position Blood Pressure Location Pulse Ox 98 Oxygen Delivery Method 06/29/24 01:56 06/29/24 02:01 06/29/24 02:01 Temperature Temperature Source Pulse Rate 97 Respiratory Rate Blood Pressure Blood Pressure Mean BP Systolic BP Diastolic Blood Pressure Source Blood Pressure Position Blood Pressure Location Pulse Ox 99 99 Oxygen Delivery Method 06/29/24 02:06 06/29/24 02:06 06/29/24 02:11 Temperature Temperature Source Pulse Rate 106 H 105 H Respiratory Rate Blood Pressure Blood Pressure Mean BP Systolic BP Diastolic Blood Pressure Source Blood Pressure Position Blood Pressure Location Pulse Ox 98 Oxygen Delivery Method 06/29/24 02:11 06/29/24 02:16 06/29/24 02:16 Temperature Temperature Source Pulse Rate 113 H Respiratory Rate Blood Pressure Blood Pressure Mean BP Systolic BP Diastolic Blood Pressure Source Blood Pressure Position Blood Pressure Location Pulse Ox 100 99 Oxygen Delivery Method 06/29/24 02:21 06/29/24 02:21 06/29/24 02:26 Temperature Temperature Source Pulse Rate 91 107 H Respiratory Rate Blood Pressure Blood Pressure Mean BP Systolic BP Diastolic Blood Pressure Source Blood Pressure Position Blood Pressure Location Pulse Ox 99 Oxygen Delivery Method 06/29/24 02:26 06/29/24 02:31 06/29/24 02:31 Temperature Temperature Source Pulse Rate 96 Respiratory Rate Blood Pressure Blood Pressure Mean BP Systolic BP Diastolic Blood Pressure Source Blood Pressure Position Blood Pressure Location Pulse Ox 100 98 Oxygen Delivery Method 06/29/24 02:36 06/29/24 02:36 06/29/24 02:37 Temperature Temperature Source Pulse Rate 116 H 118 H Respiratory Rate Blood Pressure Blood Pressure Mean BP Systolic BP Diastolic Blood Pressure Source Blood Pressure Position Blood Pressure Location Pulse Ox 99 Oxygen Delivery Method 06/29/24 02:37 06/29/24 02:41 06/29/24 02:41 Temperature Temperature Source Pulse Rate 95 Respiratory Rate Blood Pressure Blood Pressure Mean BP Systolic BP Diastolic Blood Pressure Source Blood Pressure Position Blood Pressure Location Pulse Ox 90 100 Oxygen Delivery Method 06/29/24 02:46 06/29/24 02:46 06/29/24 02:51 Temperature Temperature Source Pulse Rate 103 H 105 H Respiratory Rate Blood Pressure Blood Pressure Mean BP Systolic BP Diastolic Blood Pressure Source Blood Pressure Position Blood Pressure Location Pulse Ox 99 Oxygen Delivery Method 06/29/24 02:51 06/29/24 02:56 06/29/24 02:56 Temperature Temperature Source Pulse Rate 105 H Respiratory Rate Blood Pressure Blood Pressure Mean BP Systolic BP Diastolic Blood Pressure Source Blood Pressure Position Blood Pressure Location Pulse Ox 98 98 Oxygen Delivery Method 06/29/24 03:01 06/29/24 03:01 06/29/24 03:06 Temperature Temperature Source Pulse Rate 95 106 H Respiratory Rate Blood Pressure Blood Pressure Mean BP Systolic BP Diastolic Blood Pressure Source Blood Pressure Position Blood Pressure Location Pulse Ox 99 Oxygen Delivery Method 06/29/24 03:06 06/29/24 03:11 06/29/24 03:11 Temperature Temperature Source Pulse Rate 101 H Respiratory Rate Blood Pressure Blood Pressure Mean BP Systolic BP Diastolic Blood Pressure Source Blood Pressure Position Blood Pressure Location Pulse Ox 99 99 Oxygen Delivery Method 06/29/24 03:16 06/29/24 03:16 06/29/24 03:21 Temperature Temperature Source Pulse Rate 110 H 103 H Respiratory Rate Blood Pressure Blood Pressure Mean BP Systolic BP Diastolic Blood Pressure Source Blood Pressure Position Blood Pressure Location Pulse Ox 100 Oxygen Delivery Method 06/29/24 03:21 06/29/24 03:26 06/29/24 03:26 Temperature Temperature Source Pulse Rate 111 H Respiratory Rate Blood Pressure Blood Pressure Mean BP Systolic BP Diastolic Blood Pressure Source Blood Pressure Position Blood Pressure Location Pulse Ox 99 99 Oxygen Delivery Method 06/29/24 03:31 06/29/24 03:31 06/29/24 03:36 Temperature Temperature Source Pulse Rate 104 H 113 H Respiratory Rate Blood Pressure Blood Pressure Mean BP Systolic BP Diastolic Blood Pressure Source Blood Pressure Position Blood Pressure Location Pulse Ox 98 Oxygen Delivery Method 06/29/24 03:36 06/29/24 03:41 06/29/24 03:41 Temperature Temperature Source Pulse Rate 93 Respiratory Rate Blood Pressure Blood Pressure Mean BP Systolic BP Diastolic Blood Pressure Source Blood Pressure Position Blood Pressure Location Pulse Ox 99 99 Oxygen Delivery Method 06/29/24 03:46 06/29/24 03:46 06/29/24 03:48 Temperature Temperature Source Pulse Rate 109 H Respiratory Rate Blood Pressure Blood Pressure Mean BP Systolic BP Diastolic Blood Pressure Source Blood Pressure Position Blood Pressure Location Pulse Ox 96 85 Oxygen Delivery Method 06/29/24 03:51 06/29/24 03:51 06/29/24 03:55 Temperature Temperature Source Pulse Rate 108 H 97 Respiratory Rate Blood Pressure Blood Pressure Mean BP Systolic BP Diastolic Blood Pressure Source Blood Pressure Position Blood Pressure Location Pulse Ox 97 Oxygen Delivery Method 06/29/24 03:55 06/29/24 03:56 06/29/24 03:56 Temperature Temperature Source Pulse Rate 103 H Respiratory Rate Blood Pressure Blood Pressure Mean BP Systolic BP Diastolic Blood Pressure Source Blood Pressure Position Blood Pressure Location Pulse Ox 89 92 Oxygen Delivery Method 06/29/24 04:01 06/29/24 04:01 06/29/24 04:02 Temperature Temperature Source Pulse Rate 91 98 Respiratory Rate Blood Pressure Blood Pressure Mean BP Systolic BP Diastolic Blood Pressure Source Blood Pressure Position Blood Pressure Location Pulse Ox 93 Oxygen Delivery Method 06/29/24 04:02 06/29/24 04:06 06/29/24 04:06 Temperature Temperature Source Pulse Rate 98 Respiratory Rate Blood Pressure Blood Pressure Mean BP Systolic BP Diastolic Blood Pressure Source Blood Pressure Position Blood Pressure Location Pulse Ox 94 93 Oxygen Delivery Method 06/29/24 04:17 06/29/24 04:17 06/29/24 04:19 Temperature Temperature Source Pulse Rate 111 H Respiratory Rate Blood Pressure 130/67 H Blood Pressure Mean BP Systolic 130 BP Diastolic 67 Blood Pressure Source Blood Pressure Position Blood Pressure Location Pulse Ox 100 Oxygen Delivery Method 06/29/24 04:19 06/29/24 04:22 06/29/24 04:22 Temperature Temperature Source Pulse Rate 100 104 H Respiratory Rate Blood Pressure Blood Pressure Mean BP Systolic BP Diastolic Blood Pressure Source Blood Pressure Position Blood Pressure Location Pulse Ox 98 Oxygen Delivery Method 06/29/24 04:27 06/29/24 04:27 06/29/24 04:32 Temperature Temperature Source Pulse Rate 99 95 Respiratory Rate Blood Pressure Blood Pressure Mean BP Systolic BP Diastolic Blood Pressure Source Blood Pressure Position Blood Pressure Location Pulse Ox 98 Oxygen Delivery Method 06/29/24 04:32 06/29/24 04:37 06/29/24 04:37 Temperature Temperature Source Pulse Rate 98 Respiratory Rate Blood Pressure Blood Pressure Mean BP Systolic BP Diastolic Blood Pressure Source Blood Pressure Position Blood Pressure Location Pulse Ox 98 100 Oxygen Delivery Method 06/29/24 04:42 06/29/24 04:42 06/29/24 04:47 Temperature Temperature Source Pulse Rate 103 H 99 Respiratory Rate Blood Pressure Blood Pressure Mean BP Systolic BP Diastolic Blood Pressure Source Blood Pressure Position Blood Pressure Location Pulse Ox 100 Oxygen Delivery Method 06/29/24 04:47 06/29/24 04:52 06/29/24 04:52 Temperature Temperature Source Pulse Rate 97 Respiratory Rate Blood Pressure Blood Pressure Mean BP Systolic BP Diastolic Blood Pressure Source Blood Pressure Position Blood Pressure Location Pulse Ox 100 100 Oxygen Delivery Method 06/29/24 04:57 06/29/24 04:57 06/29/24 05:02 Temperature Temperature Source Pulse Rate 101 H 105 H Respiratory Rate Blood Pressure Blood Pressure Mean BP Systolic BP Diastolic Blood Pressure Source Blood Pressure Position Blood Pressure Location Pulse Ox 100 Oxygen Delivery Method 06/29/24 05:02 06/29/24 05:07 06/29/24 05:07 Temperature Temperature Source Pulse Rate 102 H Respiratory Rate Blood Pressure Blood Pressure Mean BP Systolic BP Diastolic Blood Pressure Source Blood Pressure Position Blood Pressure Location Pulse Ox 100 100 Oxygen Delivery Method 06/29/24 05:12 06/29/24 05:12 06/29/24 05:17 Temperature Temperature Source Pulse Rate 107 H 98 Respiratory Rate Blood Pressure Blood Pressure Mean BP Systolic BP Diastolic Blood Pressure Source Blood Pressure Position Blood Pressure Location Pulse Ox 93 Oxygen Delivery Method 06/29/24 05:17 06/29/24 05:22 06/29/24 05:22 Temperature Temperature Source Pulse Rate 102 H Respiratory Rate Blood Pressure Blood Pressure Mean BP Systolic BP Diastolic Blood Pressure Source Blood Pressure Position Blood Pressure Location Pulse Ox 100 100 Oxygen Delivery Method 06/29/24 05:27 06/29/24 05:27 06/29/24 05:32 Temperature Temperature Source Pulse Rate 105 H 92 Respiratory Rate Blood Pressure Blood Pressure Mean BP Systolic BP Diastolic Blood Pressure Source Blood Pressure Position Blood Pressure Location Pulse Ox 100 Oxygen Delivery Method 06/29/24 05:32 06/29/24 05:37 06/29/24 05:37 Temperature Temperature Source Pulse Rate 103 H Respiratory Rate Blood Pressure Blood Pressure Mean BP Systolic BP Diastolic Blood Pressure Source Blood Pressure Position Blood Pressure Location Pulse Ox 100 100 Oxygen Delivery Method 06/29/24 05:42 06/29/24 05:42 06/29/24 05:47 Temperature Temperature Source Pulse Rate 100 101 H Respiratory Rate Blood Pressure Blood Pressure Mean BP Systolic BP Diastolic Blood Pressure Source Blood Pressure Position Blood Pressure Location Pulse Ox 100 Oxygen Delivery Method 06/29/24 05:47 06/29/24 05:52 06/29/24 05:52 Temperature Temperature Source Pulse Rate 97 Respiratory Rate Blood Pressure Blood Pressure Mean BP Systolic BP Diastolic Blood Pressure Source Blood Pressure Position Blood Pressure Location Pulse Ox 100 100 Oxygen Delivery Method 06/29/24 05:57 06/29/24 05:57 06/29/24 06:02 Temperature Temperature Source Pulse Rate 106 H 95 Respiratory Rate Blood Pressure Blood Pressure Mean BP Systolic BP Diastolic Blood Pressure Source Blood Pressure Position Blood Pressure Location Pulse Ox 100 Oxygen Delivery Method 06/29/24 06:02 06/29/24 06:07 06/29/24 06:07 Temperature Temperature Source Pulse Rate 96 Respiratory Rate Blood Pressure Blood Pressure Mean BP Systolic BP Diastolic Blood Pressure Source Blood Pressure Position Blood Pressure Location Pulse Ox 100 100 Oxygen Delivery Method 06/29/24 06:11 06/29/24 06:11 06/29/24 06:13 Temperature Temperature Source Pulse Rate 94 101 H Respiratory Rate Blood Pressure Blood Pressure Mean BP Systolic BP Diastolic Blood Pressure Source Blood Pressure Position Blood Pressure Location Pulse Ox 88 Oxygen Delivery Method 06/29/24 06:13 06/29/24 06:18 06/29/24 06:18 Temperature Temperature Source Pulse Rate 92 Respiratory Rate Blood Pressure Blood Pressure Mean BP Systolic BP Diastolic Blood Pressure Source Blood Pressure Position Blood Pressure Location Pulse Ox 100 100 Oxygen Delivery Method 06/29/24 06:23 06/29/24 06:23 06/29/24 06:28 Temperature Temperature Source Pulse Rate 97 113 H Respiratory Rate Blood Pressure Blood Pressure Mean BP Systolic BP Diastolic Blood Pressure Source Blood Pressure Position Blood Pressure Location Pulse Ox 100 Oxygen Delivery Method 06/29/24 06:28 06/29/24 06:33 06/29/24 06:33 Temperature Temperature Source Pulse Rate 102 H Respiratory Rate Blood Pressure Blood Pressure Mean BP Systolic BP Diastolic Blood Pressure Source Blood Pressure Position Blood Pressure Location Pulse Ox 100 100 Oxygen Delivery Method 06/29/24 06:38 06/29/24 06:38 06/29/24 06:43 Temperature Temperature Source Pulse Rate 96 93 Respiratory Rate Blood Pressure Blood Pressure Mean BP Systolic BP Diastolic Blood Pressure Source Blood Pressure Position Blood Pressure Location Pulse Ox 100 Oxygen Delivery Method 06/29/24 06:43 06/29/24 06:48 06/29/24 06:48 Temperature Temperature Source Pulse Rate 102 H Respiratory Rate Blood Pressure Blood Pressure Mean BP Systolic BP Diastolic Blood Pressure Source Blood Pressure Position Blood Pressure Location Pulse Ox 100 100 Oxygen Delivery Method 06/29/24 06:53 06/29/24 06:53 06/29/24 06:58 Temperature Temperature Source Pulse Rate 100 102 H Respiratory Rate Blood Pressure Blood Pressure Mean BP Systolic BP Diastolic Blood Pressure Source Blood Pressure Position Blood Pressure Location Pulse Ox 100 Oxygen Delivery Method 06/29/24 06:58 06/29/24 07:03 06/29/24 07:03 Temperature Temperature Source Pulse Rate 100 Respiratory Rate Blood Pressure Blood Pressure Mean BP Systolic BP Diastolic Blood Pressure Source Blood Pressure Position Blood Pressure Location Pulse Ox 100 100 Oxygen Delivery Method 06/29/24 07:08 06/29/24 07:08 06/29/24 07:25 Temperature Temperature Source Pulse Rate 101 H 108 H Respiratory Rate Blood Pressure Blood Pressure Mean BP Systolic BP Diastolic Blood Pressure Source Blood Pressure Position Blood Pressure Location Pulse Ox 100 Oxygen Delivery Method 06/29/24 07:25 06/29/24 07:30 06/29/24 07:30 Temperature Temperature Source Pulse Rate 108 H Respiratory Rate Blood Pressure Blood Pressure Mean BP Systolic BP Diastolic Blood Pressure Source Blood Pressure Position Blood Pressure Location Pulse Ox 100 100 Oxygen Delivery Method 06/29/24 07:35 06/29/24 07:35 06/29/24 07:40 Temperature Temperature Source Pulse Rate 96 105 H Respiratory Rate Blood Pressure Blood Pressure Mean BP Systolic BP Diastolic Blood Pressure Source Blood Pressure Position Blood Pressure Location Pulse Ox 100 Oxygen Delivery Method 06/29/24 07:40 06/29/24 07:45 06/29/24 07:45 Temperature Temperature Source Pulse Rate 105 H Respiratory Rate Blood Pressure Blood Pressure Mean BP Systolic BP Diastolic Blood Pressure Source Blood Pressure Position Blood Pressure Location Pulse Ox 100 100 Oxygen Delivery Method 06/29/24 07:50 06/29/24 07:50 06/29/24 07:55 Temperature Temperature Source Pulse Rate 99 95 Respiratory Rate Blood Pressure Blood Pressure Mean BP Systolic BP Diastolic Blood Pressure Source Blood Pressure Position Blood Pressure Location Pulse Ox 100 Oxygen Delivery Method 06/29/24 07:55 06/29/24 07:59 06/29/24 07:59 Temperature Temperature Source Pulse Rate 98 Respiratory Rate Blood Pressure Blood Pressure Mean BP Systolic BP Diastolic Blood Pressure Source Blood Pressure Position Blood Pressure Location Pulse Ox 100 91 Oxygen Delivery Method 06/29/24 08:23 06/29/24 08:23 06/29/24 08:55 Temperature 98.5 F Temperature Source Temporal Pulse Rate 101 H 98 Respiratory Rate 16 Blood Pressure 128/75 H 128/75 H Blood Pressure Mean 92 BP Systolic 128 BP Diastolic 75 Blood Pressure Source Monitor Blood Pressure Position Semi-Fowlers Blood Pressure Location Left Arm Pulse Ox 98 Oxygen Delivery Method Room Air 06/29/24 08:56 06/29/24 08:56 Temperature Temperature Source Pulse Rate 99 Respiratory Rate Blood Pressure Blood Pressure Mean BP Systolic BP Diastolic Blood Pressure Source Blood Pressure Position Blood Pressure Location Pulse Ox 96 Oxygen Delivery Method Weight Weight: 192 lb 10.944 oz Body Mass Index (BMI) 33.0 Physical Exam Const alert, oriented x3, no apparent distress and healthy appearing General Appearance: cooperative; Negative for anxious HEENT normocephalic Face and Sinus: normal facial exam Eyes EOMs intact bilaterally and no scleral icterus General Eye: normal appearance of both eyes Neck full ROM and supple Lymph Lymphatic: no lymphadenopathy noted Chest Chest: abnormal inspection of the chest Resp normal respiratory effort Effort and Inspection: able to speak in complete sentences Cardio regular rate GI soft to palpation and non-tender Inspection: gravid Palpation: soft; Negative for tender Back/Spine no CVA tenderness Extremity normal to inspection, full ROM and no clubbing, cyanosis or edema General Extremity: Negative for calf tenderness or edema Skin Lesions: no lesions Rashes: no rashes Psych mental status grossly normal Labs Labs Labs: Blood Type A POSITIVE Antibody Screen NEGATIVE Hct 27.7 % (37-47) L Hgb 9.3 g/dL (12.0-15.0) L Obstetrics Ultrasound Syphilis Total Ab Non-reactive Rubella IgG Antibody Reactive (Nonreactive) Hep Bs Antigen Non-Reactive (Nonreactive) Hepatitis C Antibody Non-Reactive (Nonreactive) Chlamydia DNA (JOSE) Negative (Negative) N.gonorrhoeae DNA (JOSE) Negative (Negative) HIV 1&2 Antibody Non-Reactive (Nonreactive) Glucose 1 Hr 50 gm 139 mg/dL (70-140) Assessment & Plan (1) Late deceleration of heart rate: (2) Anemia affecting : QUALIFIERS: Trimester: second trimester Qualified Code(s): O99.012 - Anemia complicating , second trimester COMMENT: at NOB; taking fe. hg 9 at 28 weeks. rpt 4 weeks. if still low despite iron, order iron studies and consider IV iron. (3) History of prior with IUGR : COMMENT: growth US at 36 weeks (4) History of recurrent miscarriages: COMMENT: APL panel negative tested in [place]:she's getting records (5) Hx successful (vaginal after ), currently : COMMENT: needs records from previous hospital (6) Supervision of high-risk : QUALIFIERS: Trimester: second trimester Qualified Code(s): O09.92 - Supervision of high risk , unspecified, second trimester COMMENT: PRR, , NURIA 08/19/24, PC Alvarado Meyers Quinzie, Mickey (7) : QUALIFIERS: Weeks of gestation: 32 weeks Qualified Code(s): Z3A.32 - 32 weeks gestation of COMMENT: declined genetic & carrier testing. nl anatomy PLAN: Plan After discussing the patient's diagnosis and treatment plan options, patient wishes to proceed with surgical management. I have discussed with the patient the risks, benefits, and alternatives of the procedure which include but are not limited to risks of anesthesia, bleeding, infection, possible damage to bowel, bladder, or surrounding vasculature which could lead to additional surgery to evaluate any complications. Patient agrees to procedure and wishes to proceed.
[2024-06-29] MEDS: Acetaminophen 500 MG Tablet 1000 MG PO ×2 (09:10→22:14)
[2024-06-29 09:20] LABS: Syphilis Antibodies Non-reactive
[2024-06-29 09:55] LABS: Differential Indicated MANUAL DIFF
[2024-06-29 10:08] LABS: Lymphocyte 5 % (19-41); Metamyelocyte 1 % (0-1); Monocyte 4 % (0-10); Myelocyte 4 % (0-0); Neutrophil-Segmented 86 % (47-70); Total Cells Counted 100 (MANUAL DIFF)
[2024-06-29 10:13] LABS: Polychromasia RARE; Red Cell Morphology N CYTIC NORMAL (NORM C&C)
[2024-06-29 10:14] LABS: Platelet Estimate ADEQUATE (ADEQ)
[2024-06-29 10:16] LABS: Absolute Neutrophil Count 17.4 X10^3/uL (2.0-7.7)
[2024-06-29] MEDS: Sodium Citrate/Citric Acid 30 ML UDC PO (10:27)
--- NOTE | 2024-06-29 12:00 | EX.PCM.OBRPT ---
Assessment & Plan (1) Late deceleration of heart rate: (2) Decreased movements in third trimester: (3) Variable heart rate decelerations, antepartum: (4) Abnormal glucose affecting : COMMENT: needs 3 hour (5) History of prior with IUGR : COMMENT: growth US at 36 weeks (6) History of recurrent miscarriages: COMMENT: APL panel negative tested in [place]:she's getting records (7) Hx successful (vaginal after ), currently : COMMENT: needs records from previous hospital (8) Supervision of high-risk : QUALIFIERS: Trimester: second trimester Qualified Code(s): O09.92 - Supervision of high risk , unspecified, second trimester COMMENT: KYLEIGH, , NURIA 08/19/24, Alvarado Henao Quinzie, Mickey (9) : QUALIFIERS: Weeks of gestation: 32 weeks Qualified Code(s): Z3A.32 - 32 weeks gestation of COMMENT: declined genetic & carrier testing. nl anatomy Maternal Data Information NURIA Calculator Estimated Delivery Date Method Current WG Current Estimate 08/19/24 Ultrasound #1 32w 5d Final NURIA: 08/19/24 Gestational age: 32 weeks 5 days Doctor Who Attended Delivery: Edmund Rasmussen Operative Report (OB) Cecarean Details Procedure Type: low transverse Date of Procedure: 06/29/24 Procedure Start Time: 10:58 Procedure Stop Time: 11:56 Time of Delivery: 11:03 Pre-Operative Diagnosis: Nonreassuring Status Post-Operative Diagnosis: Same as Pre-operative diagnosis Classification: SRIDHAR Type of Anesthesia: Spinal Antibiotic Given: Ancef 2 grams IV x1 Drain: Avila to straight drain Estimated Blood Loss: 600cc Findings Description of surgery: The patient is a 29 y/o @ 32 weeks 5 days who presented to labor and delivery 2 days prior for decelerations. The decelerations worsened on the weaver narrow fabrics of 06/29/24 and were found to be late decelerations following more than 50% of contractions. The decision was made to perform a repeat . The [facility] transport team was called to be present during the delivery. Spinal anesthesia was placed without difficulty. Avila catheter was placed. The patient was placed in the dorsal supine position with leftward tilt. Patient was prepped and draped in the normal sterile fashion. Pfannenstiel skin incision was made with the scalpel and carried through to the underlying layer of fascia with the scalpel. Fascia was nicked in the midline and the incision extended laterally. The rectus bellies were dissected off superiorly and inferiorly with out complication both sharply and bluntly. The peritoneum was entered digitally. The incision was stretched and a low transverse uterine incision was made with the scalpel. The 's head was delivered atraumatically followed by the anterior and posterior shoulders without complication the rest of the delivered. The cord was clamped and cut and the was handed off to awaiting nurse. The placenta was delivered spontaneously immediately following and was noted to be intact and have a three-vessel cord. The uterus was exteriorized cleared of all clots and debris, and the incision was closed in a double layer closure using #1 Vicryl and #1 Monocryl. the left most lateral aspect of the uterus was noted to be bleeding heavily. Suture was placed without success. A uterine artery ligation was then performed and this stopped the bleeding. The ovaries and fallopian tubes were noted to be within normal limits. The uterus was returned to the maternal abdomen and gutters were cleared of all clots and debris. The peritoneum was closed with 3-0 Monocryl in a running fashion. Fascia was closed with 0 PDS in a running fashion. Subcutaneous tissue was copiously irrigated and the skin was closed with 3-0 Monocryl in a subcuticular fashion. Mepilex dressing was applied without complication. Patient was taken to recovery in stable condition. It was discussed with the patient that based on the clinical information obtained during this encounter, combined with her history, at this time I would recommend repeat section for future deliveries if further pregnancies are desired. Surgical findings: viable male infant. Apgars are pending. Normal uterus, tubes, ovaries. Presentation: Vertex Amniotic Membrane Rupture Type: Artificial Amniotic Fluid Description: Clear Placental Delivery Description: Expressed Placenta Disposition: Sent with transport team Specimen collected: No Cord Vessel Description: 3 Vessels Cord Entanglement: None Cord Gases: ABG and VBG A gender: Male Delayed Cord Clamping: No Freight And Passenger Agent training and development project leader: Yes Proctologist: Simone Villalpando Tasks completed by family assistant: Closing and Retracting Additional assistant manager/embalmer?: No Complications Complications: No Procedures Urinary/Genital [id number]: [id number] delivery+PP Care([facility])
--- NOTE | 2024-06-29 12:11 | DCINST_ITS ---
Discharge Instructions Diet Discharge Diet: No restrictions DC O2, CPAP, BIPAP needs Home O2 Discharge instructions: No Dressing / Incision Discharge Activity: May Not Drive (for 2 weeks or while taking narcotic pain medications.), May Shower and May Take a Tub Bath (in 7 days.) May resume sexual activity in: 4-6 weeks Weight Bearing Status: Full weight bearing Lifting Restrictions: 20 pounds Dressing / Incision Call your doctor if your incision/area has: Continuous Slow Oozing, Sudden Increased Bleeding, Increased Pain/ Swelling, Increased Redness and Foul Smelling Discharge Call your doctor if you observe: Fever of 101 or Higher and Using more than 1 pad per hour Suture Line Care: Avoid Pulling/Pushing and Avoid Pinching/Bending Cleanse incision/area with: Soap & Water and Keep Dressing Clean & Dry Follow Up Care Please Follow Up With: Julissa Bradshaw DO When: Call [phone] to make an appointment for an incision check in 1-2 weeks. Test Results: Test results from this visit will be discussed in further detail at your follow- up appointment, if applicable. Discharge Plan Admission Admit Date/Time: 06/27/24 10:30 Primary Reason for Your Visit: Attending Provider: Julissa Bradshaw Primary Care Provider: Care Physician,No Primary Consulting Providers: Khushi Mendez Discharge Orders/Prescriptions Prescriptions: New ibuprofen 800 mg tablet 800 mg PO Q8H PRN (Reason: pain) Qty: 30 0RF oxycodone-acetaminophen [Percocet] 5-325 mg tablet 1 tab PO Q4H PRN (Reason: pain) 7 Days Qty: 20 0RF Rx Instructions: 1-2 tabs q 4 hrs as needed for pain Continued Algal Rembrandt-3 DHA 200 mg capsule 1 mg PO DAILY B complex-liver extract Capsule 1 cap PO DAILY ActivNutrients(no copper-iron) 170 mcg DFE capsule 1 cap PO DAILY ferrous sulfate [FeroSul] 325 mg (65 mg iron) tablet 325 mg PO DAILY Referrals / Follow Up: Care Physician,No Primary [Primary Care Provider] - Disposition Disposition (needs filled in before D/C Order can be placed): Home, Self Care
[2024-06-29] MEDS: Oxytocin 15 Units/NS 250ml 15 UNITS/250 ML IV.SOLN 83 UNITS IV (12:15)
[2024-06-29] MEDS: Ketorolac 30 MG/ML Syringe IV ×2 (14:08→20:23)
[2024-06-29] MEDS: Lactated Ringers 1,000 ML 100 ML IV (14:09)
[2024-06-29] MEDS: Ondansetron 4 MG/2 ML Vial IV (20:19)
[2024-06-29] MEDS: 0.9% Saline Lock 10 ML Syringe IV ×2 (20:23→20:26)
[2024-06-30] VITALS (14 sets, daily range): BP systolic 104–137; BP diastolic 55–72; PULSE 61–103; RESP 14–16; TEMP 36.4–36.8; O2SAT 97–100
--- NOTE | 2024-06-30 01:48 | NURSING ---
Patient unable to void after carbajal catheter removal at 1800. Patient orally hydrated throughout evening, tried meir bottle and running water to assist with void and showered to try and relax to be able to void. Unsuccessful at this time. This RN emptied bladder via straight catheter and emptied 650 mL from bladder. Patient encouraged to continue to orally hydrate and try and void every 2-3 hours. Patient verbalized understanding.
[2024-06-30] MEDS: Ketorolac 30 MG/ML Syringe IV ×2 (02:19→09:52)
[2024-06-30] MEDS: 0.9% Saline Lock 10 ML Syringe IV ×2 (02:19→09:52)
[2024-06-30] MEDS: Acetaminophen 500 MG Tablet 1000 MG PO ×2 (04:45→09:52)
--- NOTE | 2024-06-30 07:19 | PN.OBGYN_ITS ---
Subjective Subjective Patient doing well without complaints. Tolerating PO. Ambulating and voiding without difficulty. feeding well. Denies chest pain, shortness of breath, calf pain/swelling, fevers, chills, lightheadedness. Objective Data Objective Data Vital Signs: Vital Signs Temp Pulse Resp BP Pulse Ox O2 Del Method 97.8 F 75 16 110/69 97 Room Air 06/30/24 06:30 06/30/24 06:36 06/30/24 06:30 06/30/24 06:36 06/30/24 06:36 06/30/24 06:30 Oxygen Delivery Method Room Air Weight: 192 lb 10.944 oz Body Mass Index (BMI) 33.0 Intake & Output: Intake and Output for Last 24 Hours 06/28/24 06/29/24 06/30/24 23:59 23:59 23:59 Intake Total 3952 / 3952 Output Total 1500 / 1500 650 / 650 Balance 2452 / 2452 -650 / -650 Lab / Micro Data 06/29/24 08:20 Labs: Laboratory Results - last 24 hr 06/29/24 08:20: WBC 20.2 H, RBC 3.55 L, Hgb 8.5 L, Hct 24.8 L, MCV 69.9 L, MCH 23.9 L, MCHC 34.3, RDW Std Deviation 40.5, RDW Coeff of Suzanne 16.2 H, Plt Count 265, MPV 8.8, Neut % (Auto) Not Reportable, Absolute Neuts (auto) 17.4 H, Absolute Lymphs (auto) 1.00, Total Counted 100, Neutrophils % (Manual) 86 H, L ymphocytes % (Manual) 5 L, Monocytes % (Manual) 4, Metamyelocytes % 1, M yelocytes % 4 H, Diff Path Review September, Platelet Estimate ADEQUATE, RBC Morphology N CYTIC, Polychromasia RARE, PT 13.5, INR 1.0, APTT 21.8 L, Fibrinogen 392, Syphilis Total Ab Non-reactive ROS Constitutional Constitutional: Reports systems reviewed and no addt'l complaints, except as documented Cardiovascular Cardiovascular: Reports systems reviewed and no addt'l complaints, except as documented Respiratory/Chest Respiratory/Chest: Reports systems reviewed and no addt'l complaints, except as documented Gastrointestinal Gastrointestinal: Reports systems reviewed and no addt'l complaints, except as documented Physical Exam Const alert, oriented x3 and no apparent distress HEENT Head and Scalp: atraumatic Resp normal respiratory effort GI soft to palpation and non-tender Inspection: incision intact, healing well and drainage (none) Bimanual Exam - Vag & Uterus: uterus non-tender Uterus Palpation: uterus fundus firm (below Umbilicus) Assessment & Plan (1) Status post section: (2) Late deceleration of heart rate: PLAN: Plan s/p LTCS PPD # 1 1. routine post care 2. breast feeding- support given 3. rh positive 4. rubella immune
[2024-06-30 07:26] LABS: Hematocrit 25.6 % (37-47); Hemoglobin 8.7 g/dL (12.0-15.0); Mean Corpuscular Hgb 24.2 pg (27.0-32.0); Mean Corpuscular Volume 71.1 fL (81-99); Mean Platelet Vol. 9.8 fl (6.2-12.0); Platelet Count 332 K/mm3 (150-450); RBC Distribution Width CV 16.4 % (11.6-14.6); RBC Distribution Width SD 41.5 fl (35.1-43.9)
[2024-06-30] MEDS: Senna/Docusate Sodium 1 Tablet PO (09:51)
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
[2024-06-30 14:10] LABS: Pathologist Review Reviewed
== END 2024-06-30 14:10 | disposition home or self-care (01) | DRG 540 ==
LOC: WP 06-28 10:46 → WPOUT 06-29 09:40 → WP 06-29 09:40 → WPOUT 06-29 09:41 → WP 06-29 11:15
PROVIDERS: Obstetrics & Gynecology; Admitting Provider Obstetrics & Gynecology; Visit Provider Obstetrics & Gynecology
DX: O76 Abnormality in fetal heart rate and rhythm complicating labor and delivery (principal); O60.14X0 Preterm labor third trimester with preterm delivery third trimester, not applicable or unspecified; Z3A.32 32 weeks gestation of pregnancy; N96 Recurrent pregnancy loss; Z37.0 Single live birth; O36.8130 Decreased fetal movements, third trimester, not applicable or unspecified; O99.892 Other specified diseases and conditions complicating childbirth; Z87.440 Personal history of urinary (tract) infections; O99.02 Anemia complicating childbirth; Z87.59 Personal history of other complications of pregnancy, childbirth and the puerperium
CPT/HCPCS: 59025; 59050; 76816; 76819; 82731; 85025; 85027; 85384; 85610; 85730; 86780; 86850; 86900; 86901; 87086; 99221; A4216; G0378; J0702; J2405

== ENCOUNTER → 2024-06-27 | Outpatient (CLI) | payer MEDICAID, SELFPAY | END | disposition home or self-care (01) | LOC: LABSPEC 11:30 | PROVIDERS: Referring Provider Obstetrics & Gynecology; Visit Provider Obstetrics & Gynecology | DX: R10.2 Pelvic and perineal pain (principal); M54.50 Low back pain, unspecified | CPT/HCPCS: 87086 ==

== ENCOUNTER → 2024-08-08 | Outpatient (CLI) | payer MEDICAID, SELFPAY ==
[2024-08-08 16:07] LABS: Absolute Lymphocyte Count 2.75 X10^3/uL (0.83-4.51); Absolute Neutrophil Count 3.1 X10^3/uL (2.0-7.7); Basophil# 0.04 X10^3/uL; Basophil% 0.6 % (0-1); Eosinophil# 0.09 X10^3/uL; Eosinophils% 1.3 % (0-5); Hematocrit 32.3 % (37-47); Hemoglobin 10.5 g/dL (12.0-15.0); Lymphocyte # 2.75 X10^3/ul (0.83-4.51); Lymphocyte % 41.2 % (19-41); Mean Corp Hgb Conc 32.5 g/dL (32-36); Mean Corpuscular Hgb 22.7 pg (27.0-32.0); Mean Corpuscular Volume 69.9 fL (81-99); Mean Platelet Vol. 9.2 fl (6.2-12.0); Monocyte# 0.65 X10^3/uL; Monocyte% 9.7 % (0-10); NRBC Flagged by Analyzer 0 % (0-5); Neutrophil # 3.13 X10^3/uL (2.7-7.7); Neutrophil % 47.1 % (47-70); Platelet Count 379 K/mm3 (150-450); RBC Distribution Width CV 18.2 % (11.6-14.6); RBC Distribution Width SD 45.5 fl (35.1-43.9); Red Blood Count 4.62 M/mm3 (4.2-5.4); White Blood Count 6.7 K/mm3 (4.4-11.0)
== END | disposition home or self-care (01) ==
LOC: BWCLAB 14:51
PROVIDERS: Visit Provider Nurse Practitioner Women's Health
DX: D64.9 Anemia, unspecified (principal)
CPT/HCPCS: 36415; 85025

== ENCOUNTER → 2024-08-08 | Outpatient (CLI) | payer MEDICAID, SELFPAY ==
[2024-08-12 13:08] LABS: HPV APTIMA, High Risk Negative (Negative)
== END | disposition home or self-care (01) ==
LOC: LABSPEC 16:22
PROVIDERS: Referring Provider Nurse Practitioner Women's Health; Visit Provider Nurse Practitioner Women's Health
DX: Z12.4 Encounter for screening for malignant neoplasm of cervix (principal)
CPT/HCPCS: 87624; 88175; G0145